=== PATIENT | female | born 1995 | race Caucasian/White ===

== ENCOUNTER 2022-02-13 01:32 | Observation (INO) | payer OTHER, SELFPAY ==
[2022-02-13] VITALS (40 sets, daily range): BP systolic 97–159; BP diastolic 45–100; PULSE 72–124; RESP 13–27; TEMP 37.1–37.6; O2SAT 96–100; BMI 22.6
--- NOTE | 2022-02-13 01:53 | XRR_ITS ---
PROCEDURE INFORMATION: Exam: XR Right Foot Exam date and time: 02/13/2022 2:56 AM Age: 26 years old Clinical indication: Pain; Foot; Right; Additional info: Snake bite at mid 3rd and 4th metatarsal area TECHNIQUE: Imaging protocol: Radiologic exam of the Right foot. Views: 3 or more views. COMPARISON: No relevant prior studies available. FINDINGS: Bones/joints: No acute fracture or malalignment. Joint spaces are maintained. Soft tissues: No radiopaque foreign bodies or subcutaneous emphysema. Soft tissue swelling over the dorsum of the forefoot. XR/XR foot RT min 3V* [id number] IMPRESSION: 1. No acute fracture or malalignment. 2. No radiopaque foreign bodies or subcutaneous emphysema.
[2022-02-13 02:05] LABS: Basophils % 0.5 %; Eosinophils % 0.3 %; Hematocrit 47.3 % (37.0-47.0); Hemoglobin 16.4 g/dL (11.5-15.3); Lymphocytes # 1.2 10^3/uL (0.8-4.8); Lymphocytes % 19.3 %; Mean Corpuscular HGB Conc 34.7 g/dL (30.0-36.0); Mean Corpuscular Hemoglobin 31.8 pg (28.0-34.0); Mean Corpuscular Volume 91.7 fl (81-99); Mean Platelet Volume 9.6 fL (7.4-10.4); Monocytes # 0.3 10^3/uL (0.2-0.9); Monocytes % 4.9 %; Neutrophils # 4.71 10^3/uL (1.8-7.7); Neutrophils % 74.7 %; Nucleated Red Blood Cells % 0 %; Platelet Count 241 10^3/cmm (130-400); Red Blood Count 5.16 10^6/uL (4.1-5.3); Red Cell Distribution Width 12.3 % (12.1-15.1); White Blood Count 6.3 10^3/uL (4.0-10.0)
[2022-02-13] MEDS: diphenhydrAMINE 50 mg/mL SDV 1mL IVP (02:12)
[2022-02-13] MEDS: morphine 4 mg/mL SDV 1 mL IVP (02:12)
[2022-02-13] MEDS: ondansetron 2 mg/ML SDV 2 mL 4 MG IVP ×2 (02:13→04:07)
[2022-02-13 02:20] LABS: Alanine Aminotransferase 10 U/L (0-33); Albumin Level 5.4 g/dL (3.5-5.2); Alkaline Phosphatase 85 IU/L (35-105); Anion Gap 18.6 (5-19); Aspartate Amino Transferase 16 U/L (0-32); Blood Urea Nitrogen 4 mg/dL (6-20); Calcium 9.5 mg/dL (8.5-10.5); Carbon Dioxide 24 mmol/L (22-29); Chloride 103 mmol/L (98-107); Creatine Phosphokinase 81 U/L (26-192); Creatinine Clr Calc Pharmacy 122.3455; Globulin 2.8 g/dL (1.3-4.6); Glomerular Filtration Rate 119.9 mL/min (90-130); Glucose 108 mg/dL (65-115); Osmolality Calculated 291 mOsm/kg (285-295); Potassium 3.6 mmol/L (3.5-5.1); Sodium 142 mmol/L (136-145); Total Bilirubin 0.9 mg/dL (0.15-1.2); Total Protein 8.2 g/dL (6.6-8.7)
[2022-02-13] MEDS: lactated ringers 1,000 ML 150 ML IV ×4 (02:21→23:02)
[2022-02-13 02:42] LABS: INR 1.01 (0.8-1.2)
[2022-02-13 02:47] LABS: Fibrinogen 230 mg/dL (174-498)
[2022-02-13] MEDS: fentaNYL 50 mcg/mL INJ 2mL IVP (04:06)
--- NOTE | 2022-02-13 04:20 | ED_ITS ---
HPI - Animal Bite General: Chief Complaint: Animal Bite Stated Complaint: Snake bite Time Seen by Provider: 02/13/22 01:35 History of Present Illness: 26-year-old female [place] While going to urinate, she believes she stepped on a snake. She was struck twice in the right foot. She experienced increasing pain and swelling following this. An ambulance was called. She presents by ambulance. No vomiting. No shortness of breath. This happened around 11 PM. complaint: animal bite Onset (ago): hour(s) Animal: snake Mechanism: bite Location - Extremities: Right: foot Pain description: dull Context: provoked (Stepped on) Associated symptoms: Reports erythema; Deny bleeding, chills, cough, fever(s), headache(s), short of breath, weakness or wound drainage Review of Systems Const: Denies: fever(s) or chills ENMT: Denies: throat pain Card: Denies: chest pain Resp: Denies: dyspnea GI: Denies: abdominal pain, nausea, vomiting or diarrhea Skin/Breast: Reports: new lesions Neuro: Denies: headache(s) Physical Exam Const: GENERAL APPEARANCE: cooperative; not frail appearing NUTRITIONAL APPEARANCE: thin ORIENTATION/CONSC IOUSNESS: Yes awake HENMT: COMMON NORMALS: normocephalic, atraumatic and Normal external nose present HEAD & SCALP: normocephalic and atraumatic NOSE: Normal external nose present Eye: COMMON NORMALS: Equal, round and reactive pupils present and EOMs intact bilaterally PUPIL: Yes Equal, round and reactive pupils present Neck/C-Spine: GENERAL: Yes trachea midline Chest: CHEST: Yes Symmetrical chest wall rise Resp: COMMON NORMALS: normal respiratory effort, No use of accessory muscles and clear to auscultation bilaterally AUSCULTATION: clear to auscultation bilaterally Cardio: COMMON NORMALS: regular rate and regular rhythm RATE: regular rate RHYTHM: regular rhythm GI: COMMON NORMALS: Normal to inspection, nondistended, normoactive bowel so unds present, Soft to palpation and non-tender PALPATION: Yes Soft to pal pation Extremity: NARRATIVE EXTREMITY EXAM: Examination of the right lower extremity reveals 2 pairs of puncture wounds to the right foot dorsum. There is surrounding swelling. Right leg is about twice the size of left swelling chowdary to the mid leg. There is warmth at the ankle. Toes are somewhat cool. Capillary refill is normal. Pulses are normal. Leg compartments are not tight. She does have some pain on passive plantar flexion, but not out of proportion to exam. Neuro: KIYA COMA SCALE: document GCS findings Kiya coma scale eye opening: Spontaneous Kiya coma scale verbal response: Orientated [place] coma scale motor response: Obey commands Kiya coma scale total score: 15 Skin: NARRATIVE SKIN EXAM: See above GENERAL SKIN EXAM: erythema Course Vital Signs: Vital signs: Vital Signs Temperature 99.6 F 02/13/22 01:35 Pulse Rate 104 H 02/13/22 05:00 Respiratory Rate 19 H 02/13/22 05:00 Blood Pressure 118/65 02/13/22 05:00 Pulse Oximetry 97 02/13/22 05:00 MDM - Animal Bite Medical Decision Making 26-year-old female with 2 apparent snake strikes to the right foot. Initially on presentation, she had pain and swelling to the level of the mid right leg. This seemed to stabilize for a bit, but in the fourth hour, seem to increase more toward the proximal tibia and fibula. Because it is reaching the joint, she has 2 doses of envenomation, and significant swelling, decision was made to give her antivenom. CroFab was started. Initially, she received Solu-Medrol, Benadryl, Dilaudid, and Zofran. She has received 1 dose of fentanyl as well. No signs of decreased respiratory status. No systemic symptoms of vomiting or nausea. CBC is normal. BMP is normal. Fibrinogen is normal. INR is normal. Lab Data : 02/13/22 01:54 02/13/22 01:54 Radiology Impressions Foot X-Ray 02/13/22 01:53 IMPRESSION: 1. No acute fracture or malalignment. 2. No radiopaque foreign bodies or subcutaneous emphysema. Laboratory Results WBC 6.3 10^3/uL (4.0-10.0) 02/13/22 01:54 RBC 5.16 10^6/uL (4.1-5.3) 02/13/22 01:54 Hgb 16.4 g/dL (11.5-15.3) H 02/13/22 01:54 Hct 47.3 % (37.0-47.0) H 02/13/22 01:54 MCV 91.7 fl (81-99) 02/13/22 01:54 MCH 31.8 pg (28.0-34.0) 02/13/22 01:54 MCHC 34.7 g/dL (30.0-36.0) 02/13/22 01:54 RDW 12.3 % (12.1-15.1) 02/13/22 01:54 Plt Count 241 10^3/cmm (130-400) 02/13/22 01:54 MPV 9.6 fL (7.4-10.4) 02/13/22 01:54 Neut % (Auto) 74.7 % 02/13/22 01:54 Lymph % (Auto) 19.3 % 02/13/22 01:54 [place] % (Auto) 4.9 % 02/13/22 01:54 Eos % (Auto) 0.3 % 02/13/22 01:54 Baso % (Auto) 0.5 % 02/13/22 01:54 Neut # (Auto) 4.71 10^3/uL (1.8-7.7) 02/13/22 01:54 Lymph # (Auto) 1.2 10^3/uL (0.8-4.8) 02/13/22 01:54 [place] # (Auto) 0.3 10^3/uL (0.2-0.9) 02/13/22 01:54 Eos # (Auto) 0.0 10^3/uL (0.0-0.8) 02/13/22 01:54 Baso # (Auto) 0.0 10^3/uL (0.0-0.1) 02/13/22 01:54 Nucleated RBC % (auto) 0 % 02/13/22 01:54 Nucleated RBCs # 0.0 /100WBC 02/13/22 01:54 PT 13.60 SECONDS (12.1-14.9) 02/13/22 01:54 INR 1.01 (0.8-1.2) 02/13/22 01:54 Fibrinogen 230 mg/dL (174-498) 02/13/22 01:54 Sodium 142 mmol/L (136-145) 02/13/22 01:54 Potassium 3.6 mmol/L (3.5-5.1) 02/13/22 01:54 Chloride 103 mmol/L (98-107) 02/13/22 01:54 Carbon Dioxide 24 mmol/L (22-29) 02/13/22 01:54 Anion Gap 18.6 (5-19) 02/13/22 01:54 BUN 4 mg/dL (6-20) L 02/13/22 01:54 Creatinine 0.6 mg/dL (0.5-0.9) 02/13/22 01:54 GFR Calculation 119.9 mL/min (90-130) 02/13/22 01:54 Glucose 108 mg/dL (65-115) 02/13/22 01:54 Calculated Osmolality 291 mOsm/kg (285-295) 02/13/22 01:54 Calcium 9.5 mg/dL (8.5-10.5) 02/13/22 01:54 Total Bilirubin 0.9 mg/dL (0.15-1.2) 02/13/22 01:54 AST 16 U/L (0-32) 02/13/22 01:54 ALT 10 U/L (0-33) 02/13/22 01:54 Alkaline Phosphatase 85 IU/L (35-105) 02/13/22 01:54 Creatine Kinase 81 U/L (26-192) 02/13/22 01:54 C-Reactive Protein 3.0 mg/L (0.0-4.9) 02/13/22 01:54 Total Protein 8.2 g/dL (6.6-8.7) 02/13/22 01:54 Albumin 5.4 g/dL (3.5-5.2) H 02/13/22 01:54 Globulin 2.8 g/dL (1.3-4.6) 02/13/22 01:54 HCG, Qual Negative (Negative) 02/13/22 01:45 Discharge Plan Discharge Patient Disposition: Placed in Observation Clinical Impression: Snake bite Condition: Stable Coding Level of Care Code 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
[2022-02-13] MEDS: crotalidae antivenin 4 GM in sodium chloride 0.9% 250 ML IV (04:47)
[2022-02-13 04:59] LABS: HCG, Serum Qual Negative (Negative)
--- NOTE | 2022-02-13 05:51 | P.HP_ITS ---
Providers/Chief Complaint Chief Complaint: Snake bite History of Present Illness Pleasant 26-year-old lady without much in terms of past medical history, accidentally stepped on a snake resulting in 2 bites to her right foot, with subsequently pain, swelling, patchy ill-defined erythema of the right foot, extending above the ankle to the lower leg. She is moving the ankle joint although with difficulty due to swelling. Having trouble moving her toes. Having paresthesia and pain. In ER due to symptoms persisting and concerns of swelling progressing to reach of the knee joint, with 2 bites concerning for moderate to severe envenomation, in addition to Solu-Medrol, Benadryl, 1 L fluid bolus and pain control, she is started on CroFab infusion. Admission to intensive care unit is requested for additional monitoring. Review of Systems Const: Denies: fever(s), chills, body aches or malaise Eyes: Denies: change in vision, eye discomfort or eye redness ENMT: Denies: throat pain, oral sores or ear or mastoid pain Card: Denies: chest pain, edema, pre-syncope or dyspnea on exertion Resp: Denies: dyspnea, productive cough, change in phlegm color or hemoptysis GI: Denies: abdominal pain, nausea, vomiting, diarrhea, constipation, hematochezia or melena : Denies: flank pain, urinary frequency or hematuria Musc: Reports: extremity pain and extremity swelling Skin/Breast: Reports: rash (Patchy irregular eryth wo def borders around swelling of foot lower leg ext) Neuro: Denies: headache(s), numbness in extremities, weakness in extremities, dizziness, confusion or seizure-like activity Endo: Denies: polyuria or polydipsia Nirav/Lymph: Denies: easy bleeding or tender lymph nodes All/Imm: Denies: urticaria or tongue swelling Medications/Allergies Allergies Allergy/AdvReac Type Severity Reaction Status Date / Time No Known Allergies Allergy Verified 02/13/22 01:57 PFSH Acute PFSH: Medical History ADHD Surgical History No significant past surgical history Family History Other CAD (coronary artery disease) Social History (Updated 02/13/22 @ 05:56 by Tru Kinney MD) Smoking and tobacco status: never smoked Alcohol intake: current Alcohol intake frequency: holidays/special occasions only Substance/Drug Use: never Lives independently: Yes Household members: spouse Marital status: Vitals/I&O/Wt Last Vital Signs Temp 99.6 F 02/13/22 01:35 Pulse 106 H 02/13/22 05:45 Resp 17 02/13/22 05:45 BP 131/79 02/13/22 05:45 Pulse Ox 99 02/13/22 05:45 Weight last 48 hrs Weight 58.967 kg Physical Exam Const: COMMON NORMALS: alert GENERAL APPEARANCE: cooperative ORIENTATION/CONSCIOUSNESS: Yes awake HENMT: COMMON NORMALS: normocephalic, EAC's normal, Normal external nose present and moist oral mucous membranes HEAD & SCALP: normocephalic NOSE: Normal external nose present EXTERNAL AUDITORY CANAL: EAC's normal Neck/C-Spine: COMMON NORMALS: no meningeal signs Chest: CHEST: Yes Symmetrical chest wall rise Resp: COMMON NORMALS: clear to auscultation bilaterally AUSCULTATION: clear to auscultation bilaterally Cardio: COMMON NORMALS: regular rate, regular rhythm and No murmurs present (Cardio) RATE: regular rate RHYTHM: regular rhythm GI: COMMON NORMALS: Normal to inspection, nondistended, normoactive bowel sounds present, Soft to palpation and non-tender PALPATION: Yes Soft to palpation Extremity: COMMON NORMALS: no pedal edema NARRATIVE EXTREMITY EXAM: Swelling of R foot and ankle. Lesser extent of lower leg. Patchy irregular eryth wo def borders around swelling of foot lower leg extending to mid-fitzpatrick/calf medially. Able to flex ankle with some trouble due to swelling. Neuro: COMMON NORMALS: moves all extremities SENSORIUM/ORIENTATION: Yes alert MENINGEAL SIGNS: Yes no meningeal signs Psych: COMMON NORMALS: mental status grossly normal Skin: WOUNDS: Yes wounds noted (4 punctate wounds at bite site on dorsolateral R foot. No bleeding or drain) OTHER: Patchy irregular eryth wo def borders around swelling of foot lower leg extendi ng to mid-fitzpatrick/calf medially. Data : 02/13/22 01:54 02/13/22 01:54 A&P Assessment and plan (1) Snake bite: Snakebite documented to have occurred at 11 PM, 2 bites by an unknown species of snake to the dorsal lateral right foot with subsequent pain, swelling, patchy erythema, with swelling and patchy erythema extending to about mid lower leg, with concern that it is starting to extend toward the knee, with persistent symptoms, and [place] presence of [place] and rattlesnake species she was started on 4 vials of CroFab infusion and further monitoring is requested in ICU. She is aware to let us know in case of any symptoms of allergic reaction. As so far within the last hour there has not been additional progression of symptoms, please reassess but likely will not require additional treatment dose and may be able to progress to maintenance dose of 2 vials every 6 hours for additional 3 doses with close monitoring (18 hours). Will request that the erythema continue to be marked. Additionally reassess coagulation studies, as well as assess LDH, haptoglobin. In case of hemolysis, please request peripheral smear to assess for schistocytes. We will check CK. Reassess blood counts and electrolytes. Monitor for anaphylactic reaction, coagulopathy, hemolysis. Continue symptomatic pain control, although would avoid NSAIDs. So far no evidence of infection or necrosis, no antibiotics at this time. Avoid excessive elevation of the leg. After evaluation controlled, consider PT assessment. Status: Acute Attestations Medical Necessity Statement*: Place in observation for additional assessment management of snakebite with suspected moderate to severe envenomation. 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
[2022-02-13 06:51] LABS: Basophils % 0.2 %; Hematocrit 41.5 % (37.0-47.0); Hemoglobin 14.1 g/dL (11.5-15.3); Lymphocytes # 0.3 10^3/uL (0.8-4.8); Lymphocytes % 3.6 %; Mean Corpuscular Hemoglobin 31.5 pg (28.0-34.0); Mean Corpuscular Volume 92.6 fl (81-99); Mean Platelet Volume 9.6 fL (7.4-10.4); Monocytes # 0.1 10^3/uL (0.2-0.9); Monocytes % 0.7 %; Neutrophils # 9.11 10^3/uL (1.8-7.7); Neutrophils % 95.2 %; Nucleated Red Blood Cells % 0 %; Platelet Count 200 10^3/cmm (130-400); Red Blood Count 4.48 10^6/uL (4.1-5.3); Red Cell Distribution Width 12.5 % (12.1-15.1); White Blood Count 9.6 10^3/uL (4.0-10.0)
[2022-02-13 07:04] LABS: Fibrinogen 181 mg/dL (174-498)
[2022-02-13 07:08] LABS: Alanine Aminotransferase 8 U/L (0-33); Albumin Level 4.3 g/dL (3.5-5.2); Alkaline Phosphatase 70 IU/L (35-105); Anion Gap 15.9 (5-19); Aspartate Amino Transferase 13 U/L (0-32); Blood Urea Nitrogen 4 mg/dL (6-20); Calcium 8.6 mg/dL (8.5-10.5); Carbon Dioxide 23 mmol/L (22-29); Chloride 104 mmol/L (98-107); Creatine Phosphokinase 72 U/L (26-192); Creatinine Clr Calc Pharmacy 122.3455; Globulin 2.4 g/dL (1.3-4.6); Glomerular Filtration Rate 119.9 mL/min (90-130); Glucose 136 mg/dL (65-115); Lactate Dehydrogenase 127 U/L (135-214); Osmolality Calculated 287 mOsm/kg (285-295); Potassium 3.9 mmol/L (3.5-5.1); Sodium 139 mmol/L (136-145); Total Bilirubin 0.6 mg/dL (0.15-1.2); Total Protein 6.7 g/dL (6.6-8.7)
--- NOTE | 2022-02-13 07:31 | PM.PN ---
Subjective Subjective: History and physical reviewed. Patient interviewed as well. Complains of pain in the foot. No nausea, vomiting, abdominal pain. Medications: Reviewed: Yes Vitals/I&O/Wt Last Vital Signs Temp 99.6 F 02/13/22 01:35 Pulse 106 H 02/13/22 06:38 Resp 17 02/13/22 06:38 BP 112/71 02/13/22 06:38 Pulse Ox 98 02/13/22 06:38 02/12/22 02/13/22 02/13/22 22:59 06:59 14:59 Intake Total 250 / 250 Balance 250 / 250 Weight last 48 hrs Weight 58.967 kg Physical Exam Narrative: General exam, complaining of foot pain Neck is supple Cardiovascular regular rate and rhythm without murmur Lungs clear no wheezing or crackles Abdomen is soft with positive bowel sounds Extremities no cyanosis clubbing. Bruising present right dorsal lateral foot. 2 bite collins are noted. Distal cap refill intact. Distal movement intact although with pain. Area of erythema and swelling has been marked. Skin see findings above Neuro no focal deficits Data : 02/13/22 06:25 02/13/22 06:25 A&P Assessment and plan (1) Snake bite: Antivenom initiated in the emergency department secondary to progressive swelling. Hopefully she will be able to go maintenance dose when appropriate Repeat laboratory and coagulation studies every 6 hours as ordered, to monitor for hemolysis Hopefully with improvement and stabilization she will be able to be discharged tomorrow hCG was performed and negative Pain control Hydration Monitor for rhabdo Notify poison control if they have not already been notified Upon discharge will need fibrinogen, platelet count at 3 days and 5 days. 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
--- NOTE | 2022-02-13 07:39 | PC.NURSE ---
arrived from ED, slid self to bed form gisselle, AO x4, redness and swelling marked. pedal pulses present skin color WNL. dr. moore at bedside
--- NOTE | 2022-02-13 07:42 | PC.PHAR ---
ext med history shows last filled 01/25/22 30d/s-called pt and left voicemail-medication entered is what ext med history shows filled recently-will keep trying to contact pt to verify this medication and see if pt is taking any other medications
[2022-02-13] MEDS: HYDROcodone-acetaminophen 5-325 mg Tablet 1 TAB PO ×3 (07:51→19:17)
--- NOTE | 2022-02-13 09:52 | PC.NURSE ---
this nurse contacted poison control per Dr. Ruiz request. no further recommendations at this time, patient c/o increased pain, increased swelling noted, Dr. Ruiz put in PRN morphine
[2022-02-13] MEDS: morphine 4 mg/mL SDV 1 mL 2 MG IVP ×2 (10:21→22:01)
[2022-02-13 14:38] LABS: Basophils % 0.2 %; Hematocrit 39.3 % (37.0-47.0); Hemoglobin 13.7 g/dL (11.5-15.3); Lymphocytes # 0.8 10^3/uL (0.8-4.8); Lymphocytes % 8.1 %; Mean Corpuscular HGB Conc 34.9 g/dL (30.0-36.0); Mean Corpuscular Hemoglobin 31.6 pg (28.0-34.0); Mean Corpuscular Volume 90.8 fl (81-99); Mean Platelet Volume 9.7 fL (7.4-10.4); Monocytes # 0.6 10^3/uL (0.2-0.9); Monocytes % 5.6 %; Neutrophils # 8.48 10^3/uL (1.8-7.7); Neutrophils % 85.8 %; Nucleated Red Blood Cells % 0 %; Platelet Count 228 10^3/cmm (130-400); Red Blood Count 4.33 10^6/uL (4.1-5.3); Red Cell Distribution Width 12.5 % (12.1-15.1); White Blood Count 9.9 10^3/uL (4.0-10.0)
[2022-02-13 15:07] LABS: INR 1.11 (0.8-1.2)
[2022-02-13 15:08] LABS: Alanine Aminotransferase 8 U/L (0-33); Albumin Level 4.1 g/dL (3.5-5.2); Alkaline Phosphatase 65 IU/L (35-105); Anion Gap 14.9 (5-19); Aspartate Amino Transferase 12 U/L (0-32); Blood Urea Nitrogen 6 mg/dL (6-20); Calcium 9.1 mg/dL (8.5-10.5); Carbon Dioxide 24 mmol/L (22-29); Chloride 104 mmol/L (98-107); Creatinine Clr Calc Pharmacy 122.3455; Globulin 2.1 g/dL (1.3-4.6); Glomerular Filtration Rate 119.9 mL/min (90-130); Glucose 137 mg/dL (65-115); Lactate Dehydrogenase 120 U/L (135-214); Osmolality Calculated 288 mOsm/kg (285-295); Potassium 3.9 mmol/L (3.5-5.1); Sodium 139 mmol/L (136-145); Total Protein 6.2 g/dL (6.6-8.7)
[2022-02-13 15:13] LABS: Fibrinogen 169 mg/dL (174-498)
--- NOTE | 2022-02-13 20:30 | PC.NURSE ---
Measurements taken of circumference if ankle and calf. Ankle measurement measures at 226 cm and calf measurements measure at 332cm
[2022-02-13 20:49] LABS: Basophils % 0.2 %; Eosinophils % 0.3 %; Hematocrit 40.8 % (37.0-47.0); Hemoglobin 13.5 g/dL (11.5-15.3); Lymphocytes # 1.8 10^3/uL (0.8-4.8); Lymphocytes % 15.3 %; Mean Corpuscular HGB Conc 33.1 g/dL (30.0-36.0); Mean Corpuscular Hemoglobin 31.5 pg (28.0-34.0); Mean Corpuscular Volume 95.3 fl (81-99); Mean Platelet Volume 9.7 fL (7.4-10.4); Monocytes # 1.2 10^3/uL (0.2-0.9); Monocytes % 10.2 %; Neutrophils # 8.81 10^3/uL (1.8-7.7); Neutrophils % 73.7 %; Nucleated Red Blood Cells % 0 %; Platelet Count 226 10^3/cmm (130-400); Red Blood Count 4.28 10^6/uL (4.1-5.3); Red Cell Distribution Width 12.8 % (12.1-15.1)
[2022-02-13 21:01] LABS: INR 1.01 (0.8-1.2)
[2022-02-13 21:02] LABS: Fibrinogen 179 mg/dL (174-498)
[2022-02-13 21:06] LABS: Alanine Aminotransferase 6 U/L (0-33); Albumin Level 4.1 g/dL (3.5-5.2); Alkaline Phosphatase 65 IU/L (35-105); Anion Gap 14.3 (5-19); Aspartate Amino Transferase 12 U/L (0-32); Blood Urea Nitrogen 9 mg/dL (6-20); Carbon Dioxide 24 mmol/L (22-29); Chloride 106 mmol/L (98-107); Creatinine Clr Calc Pharmacy 122.3455; Globulin 1.9 g/dL (1.3-4.6); Glomerular Filtration Rate 119.9 mL/min (90-130); Glucose 103 mg/dL (65-115); Lactate Dehydrogenase 107 U/L (135-214); Osmolality Calculated 289 mOsm/kg (285-295); Potassium 4.3 mmol/L (3.5-5.1); Sodium 140 mmol/L (136-145); Total Bilirubin 0.9 mg/dL (0.15-1.2)
[2022-02-14] VITALS (14 sets, daily range): BP systolic 92–116; BP diastolic 48–77; PULSE 60–88; RESP 14–22; TEMP 36.8–37
[2022-02-14 05:40] LABS: Basophils % 0.1 %; Eosinophils # 0.1 10^3/uL (0.0-0.8); Eosinophils % 1.3 %; Hematocrit 38.9 % (37.0-47.0); Hemoglobin 12.9 g/dL (11.5-15.3); Lymphocytes # 2.6 10^3/uL (0.8-4.8); Mean Corpuscular HGB Conc 33.2 g/dL (30.0-36.0); Mean Corpuscular Hemoglobin 31.7 pg (28.0-34.0); Mean Corpuscular Volume 95.6 fl (81-99); Mean Platelet Volume 9.9 fL (7.4-10.4); Monocytes # 0.7 10^3/uL (0.2-0.9); Neutrophils # 4.08 10^3/uL (1.8-7.7); Neutrophils % 54.3 %; Nucleated Red Blood Cells % 0 %; Platelet Count 185 10^3/cmm (130-400); Red Blood Count 4.07 10^6/uL (4.1-5.3); Red Cell Distribution Width 12.7 % (12.1-15.1); White Blood Count 7.5 10^3/uL (4.0-10.0)
[2022-02-14] MEDS: lactated ringers 1,000 ML 150 ML IV (05:42)
[2022-02-14 05:46] LABS: INR 1.16 (0.8-1.2)
[2022-02-14 05:47] LABS: Fibrinogen 157 mg/dL (174-498)
[2022-02-14 05:50] LABS: Alanine Aminotransferase 6 U/L (0-33); Albumin Level 3.4 g/dL (3.5-5.2); Alkaline Phosphatase 57 IU/L (35-105); Aspartate Amino Transferase 11 U/L (0-32); Blood Urea Nitrogen 8 mg/dL (6-20); Carbon Dioxide 26 mmol/L (22-29); Chloride 106 mmol/L (98-107); Creatine Phosphokinase 43 U/L (26-192); Globulin 1.8 g/dL (1.3-4.6); Glucose 100 mg/dL (65-115); Lactate Dehydrogenase 89 U/L (135-214); Osmolality Calculated 284 mOsm/kg (285-295); Sodium 138 mmol/L (136-145); Total Bilirubin 1.1 mg/dL (0.15-1.2); Total Protein 5.2 g/dL (6.6-8.7)
--- NOTE | 2022-02-14 07:56 | PC.NURSE ---
Dr. Ruiz at bedside, plan is to d/c later today after PT eval
[2022-02-14] MEDS: HYDROcodone-acetaminophen 5-325 mg Tablet 1 TAB PO (08:22)
--- NOTE | 2022-02-14 10:25 | P.DS_ITS ---
Discharge Providers Date of Admission: 02/13/22 07:38 Date of Discharge: February 14, 2022 Attending Provider at Admission: Tru Kinney Attending Provider at Discharge: Ottoniel Ruiz MD Diagnoses at Discharge Discharge Diagnosis (1) Snake bite: Status: Acute Reason for Visit Reason for Visit: Snake bite Hospital Course Hospital Course Amira is a 26-year-old white female, who presented to the emergency department after a snakebite to the right lower extremity. Snake was not identified. There was concern in the emergency department regarding progressive swelling, redness and she was given antivenom. This was with CroFab, and she was given maintenance dose after that. Her blood work was monitored carefully in the hospital. After antivenom was prescribed she had no further progression of her swelling or redness. Redness in fact reduced while in the hospital, as did her pain. Serial blood work was performed and she did not develop any thrombocytopenia. She had no evidence of rhabdomyolysis, or compartment syndrome. Perfusion, and movement was stable. At time of discharge, on the vascular, motor function was intact of the lower extremity. And it was thought she could be discharged home with follow-up INR, fibrinogen, CBC in 3 days and in 7 days. She should represent to her primary care provider or the emergency department for any worsening of symptoms in her lower extremity, bleeding, increasing pain or any other concerns. I discussed this in detail with the patient and time was allowed for questions. She seemed to understand her discharge instructions well. Physical Exam Narrative: General exam no distress Neck is supple Cardiovascular regular rate and rhythm without murmur Lungs clear Abdomen soft positive bowel sounds Right lower extremity with 2 bite clolins, dorsal lateral foot, with bruising surrounding them. She had some edema to mid fitzpatrick area. Vascular, motor function intact. Cap refill brisk all toes. Erythema that had been present in the leg had receded significantly. Discharge Data Studies Completed and Pending Completed Studies During Hospitalization Category Date Time Status XR foot RT min 3V* [id number] Stat Exams 02/13/22 01:53 Completed Pending at discharge Category Date Time Status Complete Blood Count w/Auto AM LABS Lab 02/15/22 04:00 Ordered Complete Blood Count w/Auto AM LABS Lab 02/16/22 04:00 Ordered Comprehensive Metabolic Panel AM LABS Lab 02/15/22 04:00 Ordered Comprehensive Metabolic Panel AM LABS Lab 02/16/22 04:00 Ordered Radiology Impressions Foot X-Ray 02/13/22 01:53 IMPRESSION: 1. No acute fracture or malalignment. 2. No radiopaque foreign bodies or subcutaneous emphysema. Laboratory Results WBC 7.5 10^3/uL (4.0-10.0) 02/14/22 04:47 RBC 4.07 10^6/uL (4.1-5.3) L 02/14/22 04:47 Hgb 12.9 g/dL (11.5-15.3) 02/14/22 04:47 Hct 38.9 % (37.0-47.0) 02/14/22 04:47 MCV 95.6 fl (81-99) 02/14/22 04:47 MCH 31.7 pg (28.0-34.0) 02/14/22 04:47 MCHC 33.2 g/dL (30.0-36.0) 02/14/22 04:47 RDW 12.7 % (12.1-15.1) 02/14/22 04:47 Plt Count 185 10^3/cmm (130-400) 02/14/22 04:47 MPV 9.9 fL (7.4-10.4) 02/14/22 04:47 Neut % (Auto) 54.3 % 02/14/22 04:47 Lymph % (Auto) 35.0 % 02/14/22 04:47 [place] % (Auto) 9.0 % 02/14/22 04:47 Eos % (Auto) 1.3 % 02/14/22 04:47 Baso % (Auto) 0.1 % 02/14/22 04:47 Neut # (Auto) 4.08 10^3/uL (1.8-7.7) 02/14/22 04:47 Lymph # (Auto) 2.6 10^3/uL (0.8-4.8) 02/14/22 04:47 [place] # (Auto) 0.7 10^3/uL (0.2-0.9) 02/14/22 04:47 Eos # (Auto) 0.1 10^3/uL (0.0-0.8) 02/14/22 04:47 Baso # (Auto) 0.0 10^3/uL (0.0-0.1) 02/14/22 04:47 Nucleated RBC % (auto) 0 % 02/14/22 04:47 Nucleated RBCs # 0.0 /100WBC 02/14/22 04:47 Haptoglobin 98.0 mg/L (30-200) 02/14/22 04:47 PT 15.20 SECONDS (12.1-14.9) H 02/14/22 04:47 INR 1.16 (0.8-1.2) 02/14/22 04:47 Fibrinogen 157 mg/dL (174-498) L 02/14/22 04:47 Sodium 138 mmol/L (136-145) 02/14/22 04:47 Potassium 4.0 mmol/L (3.5-5.1) 02/14/22 04:47 Chloride 106 mmol/L (98-107) 02/14/22 04:47 Carbon Dioxide 26 mmol/L (22-29) 02/14/22 04:47 Anion Gap 10.0 (5-19) 02/14/22 04:47 BUN 8 mg/dL (6-20) 02/14/22 04:47 Creatinine 0.5 mg/dL (0.5-0.9) 02/14/22 04:47 GFR Calculation 148.0 mL/min (90-130) H 02/14/22 04:47 Glucose 100 mg/dL (65-115) 02/14/22 04:47 Calculated Osmolality 284 mOsm/kg (285-295) L 02/14/22 04:47 Calcium 8.0 mg/dL (8.5-10.5) L 02/14/22 04:47 Phosphorus 3.0 mg/dL (2.5-4.5) 02/14/22 04:47 Total Bilirubin 1.1 mg/dL (0.15-1.2) 02/14/22 04:47 AST 11 U/L (0-32) 02/14/22 04:47 ALT 6 U/L (0-33) 02/14/22 04:47 Alkaline Phosphatase 57 IU/L (35-105) 02/14/22 04:47 Lactate Dehydrogenase 89 U/L (135-214) L 02/14/22 04:47 Creatine Kinase 43 U/L (26-192) 02/14/22 04:47 C-Reactive Protein 3.0 mg/L (0.0-4.9) 02/13/22 01:54 Total Protein 5.2 g/dL (6.6-8.7) L 02/14/22 04:47 Albumin 3.4 g/dL (3.5-5.2) L 02/14/22 04:47 Globulin 1.8 g/dL (1.3-4.6) 02/14/22 04:47 HCG, Qual Negative (Negative) 02/13/22 01:45 Vitals Last Vital Signs Temp 98.6 F 02/14/22 04:00 Pulse 84 02/14/22 08:05 Resp 16 02/14/22 08:05 BP 116/63 02/14/22 05:00 Pulse Ox 98 02/13/22 12:00 Discharge Plan Discharge Patient Disposition: Home Condition: Stable Prescriptions: New hydrocodone-acetaminophen 5-325 mg Tablet 1 tab PO Q4H PRN (Reason: Moderate Pain) Qty: 20 0RF Continued dextroamphetamine-amphetamine 12.5 mg tablet 12.5 mg PO BID 0RF Discharge Orders: Discharge Order (Routine); Ordered 02/14/22 Ordered By: Ottoniel Ruiz Discharge Diet: Regular Discharge Activity: Increase activity as tolerated Patient Instructions: Snake Bite (DC), Opioid Safety Activity Restrictions/Additional Instructions: Please see your primary care provider within 3 to 5 days CBC, INR, fibrinogen level should be done in 3 days and 7 days. This can be don e at your primary care provider's office. Return for any worsening pain in the right lower extremity, worsening redness, or any concerns. Discharge Attestations Time Spent in Discharge Care*: greater than 30 min Quality Metrics Clinical Quality Measures [ No reported AMI, CVA or VTE this stay] Coding Level of Care Code Acute Chg FW DC note Diagnoses Snake bite W59.11XA
--- NOTE | 2022-02-14 14:17 | PC.NURSE ---
Approximately 1245 all d/c instructions educated to patient, patient signed D/C form, Dr. Ruiz filled out FMLA form, Crutches brought to bedside by HOME, patient SILKE approximately 1300 transported by
== END 2022-02-14 13:00 | disposition home or self-care (01) ==
LOC: ER 05:37 → ICU 06:40
PROVIDERS: Admitting Provider Internal Medicine; Emergency Provider Emergency Medicine; Visit Provider Internal Medicine
DX: T63.061A Toxic effect of venom of other North and South American snake, accidental (unintentional), initial encounter (principal); Y92.9 Unspecified place or not applicable
CPT/HCPCS: 73630; 80053; 82550; 83010; 83615; 84100; 84703; 85025; 85384; 85610; 86140; 96361; 96365; 96375; 96376; 97116; 97161; 99285; G0378; J0840; J1200; J2270; J2405; J2930; J3010; J7050